=== PATIENT | male | born 1965 | race Caucasian/White ===

== ENCOUNTER 2020-07-05 13:32 | Emergency (ER) | payer OTHER, SELFPAY ==
[2020-07-05] VITALS (15 sets, daily range): BP systolic 171–229; BP diastolic 90–102; PULSE 89–123; RESP 13–21; TEMP 36.1; O2SAT 98–100
--- NOTE | ~2020-07-05 | XR_ITS ---
EXAMINATION: XR chest 2V EXAM DATE: 07/05/2020 14:14 INDICATION: elevated BP . TECHNIQUE: Frontal and lateral projections of the chest obtained and reviewed. There is no prior robert dy for comparison. FINDINGS: The lungs are clear. There are no pleural effusions. The cardiomediastinal silhouette is within normal limits. There is no pneumothorax suspected. The bones and soft tissues are unremarkab le. IMPRESSION: No acute cardiopulmonary findings. Reviewed, dictated and finalized at location B. [employer]
--- NOTE | 2020-07-05 13:43 | ECG_ITS ---
Measurements Intervals [place] Rate: 99 P: 79 SD: 124 QRS: -9 QRSD: 82 T: 38 QT: 357 QTc: 460 Interpretive Statements SINUS RHYTHM VOLTAGE CRITERIA FOR LVH BORDERLINE ECG Electronically Signed On 07-05-2020 14:33:18 FIELD ENGINEER by Shady Campos D.O.
--- NOTE | 2020-07-05 13:43 | ED.GENADULT ---
HPI - General Adult General Chief complaint: Alcohol Stated complaint: High Blood Pressure Time Seen by Provider: 07/05/20 13:43 Source: patient Mode of arrival: ambulatory Limitations: no limitations History of Present Illness HPI narrative: Patient is a 54-year-old male who presents for evaluation from her primary care physician's office for evaluation of possible alcohol withdrawl; elevated BP. Pt was a daily drinker of 12+ beers for many years, and then decided to stop drinking approximately one week ago. Pt seen at his PCP's office today and noted to be tachycardic, hypertensive, achy, and thus was sent here for evaluation. Patient does have hypertension at baseline, states it has been poorly controlled over the past couple of weeks based on a physical that he recently had at his place of work. He denies any headache, chest pain, shortness of breath. No nausea or vomiting. Patient states he feels shaky. He denies any diarrhea. He denies any falls or seizure-like activity. Related Data Home Medications Medication Instructions Recorded Confirmed escitalopram oxalate 20 mg tablet 20 mg PO DAILY 07/05/20 omeprazole 20 mg capsule,delayed 20 mg PO DAILY 07/05/20 release Allergies Allergy/AdvReac Type Severity Reaction Status Date / Time No Known Allergies Allergy Mild Verified 07/05/20 13:42 Review of Systems Review of Systems: Narrative: CONSTITUTIONAL: Denies fever, chills, or sweats. EYES: Denies visual changes, redness, or discharge. ENT: Denies rhinorrhea, congestion, sore throat, or otalgia. CARDIOVASCULAR: Denies chest pain, reports palpitations RESPIRATORY: Denies cough or dyspnea. GASTROINTESTINAL: Denies abdominal pain, nausea, vomiting, or diarrhea. GENITOURINARY: Denies dysuria or hematuria. SKIN: Denies rash or itching. MUSCULOSKELETAL: Denies back pain, joint pain, or myalgia. NEUROLOGIC: Denies headache, numbness, or weakness. PMFSH Past Medical History Medical History Anxiety disorder, unspecified Essential hypertension Heartburn Mixed hyperlipidemia Tobacco abuse Tobacco use Family History Family History Mother Hypertension Family history of diabetes mellitus in first degree relative Family history of coronary artery disease Father Cerebrovascular accident Family history of coronary artery disease Family history of throat cancer Social History Social History (Updated 07/05/20 @ 14:01 by Chica Peñaloza MD) Smoking status: Current every day smoker Tobacco type: cigarettes Alcohol intake: former Substance use: never Gender identity (if verbalized by the patient): Male Exam Narrative: Exam Narrative: GENERAL: Awake, alert, conversant, mildly anxious appearing HEAD: Normocephalic, atraumatic. EYES: PERRLA and EOMI. ENT: Nares clear, no rhinorrhea or epistaxis. Mucous membranes moist. NECK: Supple. CHEST: No respiratory distress, breathing even and non labored HEART: Tachycardic rate, sinus rhythm ABDOMEN:Non distended, non tender EXTREMITIES: Normal range of motion. No edema. SKIN: Warm, dry, no rash. NEURO:No focal deficits. Alert and oriented x3, tremulous Course Vital Signs Vital signs: Vital Signs Temperature 36.1 C L 07/05/20 13:37 Pulse Rate 123 H 07/05/20 13:37 Respiratory Rate 18 07/05/20 13:37 Blood Pressure 229/91 H 07/05/20 13:37 Pulse Oximetry 99 07/05/20 13:37 Temperature 36.1 C L 07/05/20 13:37 Pulse Rate 113 H 07/05/20 13:51 Respiratory Rate 18 07/05/20 13:37 Blood Pressure 229/91 H 07/05/20 13:37 Pulse Oximetry 99 07/05/20 13:37 Discharge Plan Discharge Prescriptions: No Action benazepril 10 mg tablet 10 mg PO DAILY Qty: 30 RF: 0 omeprazole 20 mg capsule,delayed release(DR/EC) 20 mg PO DAILY RF: 0 escitalopram oxalate [Lexapro] 20 mg tablet 20 mg PO DAILY RF: 0
[2020-07-05] MEDS: diphenhydrAMINE HCl INJ 50 MG/ML VIAL IV PUSH (13:54)
[2020-07-05] MEDS: SODIUM CHLORIDE 0.9% IV 1,000 ML 999 ML IV CONT (13:54)
[2020-07-05] MEDS: ONDANSETRON INJ 4 MG/2 ML VIAL IV PUSH (13:54)
[2020-07-05] MEDS: MAGNESIUM SULF 2 GM/WATER 50ML 2 GM/50 ML BAG IVPB (14:00)
[2020-07-05] MEDS: LORazepam INJ (*CRX) 2 MG/ML VIAL 1 MG IV PUSH (14:00)
[2020-07-05 14:01] LABS: Basophils Absolute Auto 0.1 K/mm3 (0.0-0.1); Basophils Percent Auto 0.4 % (0.2-1.2); Eosinophils Absolute Auto 0.1 K/mm3 (0-0.3); Eosinophils Percent Auto 0.4 % (0-4.4); Hematocrit 45.7 % (42.0-52.0); Hemoglobin 15.8 g/dL (14.0-18.0); Immature Granulocyte Absolute 0.03 K/mm3 (0.00-0.031); Immature Granulocyte Percent A 0.3 % (0-0.5); Lymphocytes Absolute Auto 1.62 K/mm3 (0.9-3.2); Mean Corpuscular HGB Conc 34.6 g/dl (32-36); Mean Corpuscular Hemoglobin 32.7 pg (26-34); Mean Corpuscular Volume 94.6 fl (80-100); Mean Platelet Volume 8.8 fl (7.4-10.4); Monocytes Absolute Auto 1.3 K/mm3 (0.1-0.6); Neutrophils Absolute Auto 8.6 K/mm3 (1.3-6.7); Neutrophils Percent Auto 73.9 % (45.5-73.1); Platelet Count Result 222 k/mm3 (150-375); Red Blood Count 4.83 M/mm3 (4.6-6.20); Red Cell Distribution Width 12.7 % (11.5-14.5); White Blood Count 11.6 K/mm3 (4.5-10.0)
--- NOTE | 2020-07-05 14:05 | PC.NURSE ---
BS 151
--- NOTE | 2020-07-05 14:07 | PC.NURSE ---
Pt to XRAY via stretcher.
[2020-07-05 14:09] LABS: Glucose Point of Care 151 (65-105)
--- NOTE | 2020-07-05 14:11 | ED.GENADULT ---
HPI - General Adult General Chief complaint: Alcohol Stated complaint: High Blood Pressure Time Seen by Provider: 07/05/20 13:43 Source: patient Mode of arrival: ambulatory Limitations: no limitations History of Present Illness HPI narrative: Patient is a 54-year-old male who presents for evaluation from her primary care physician's office for evaluation of possible alcohol withdrawl; elevated BP. Pt was a daily drinker of 12+ beers for many years, and then decided to stop drinking approximately one week ago. Pt seen at his PCP's office today and noted to be tachycardic, hypertensive, achy, and thus was sent here for evaluation. Patient does have hypertension at baseline, states it has been poorly controlled over the past couple of weeks based on a physical that he recently had at his place of work. He has been compliant with his anti hypertensives this week. He denies any headache, chest pain, shortness of breath. No nausea or vomiting. Patient states he feels shaky. He denies any diarrhea. He denies any falls or seizure-like activity. Related Data Home Medications Medication Instructions Recorded Confirmed escitalopram oxalate 20 mg tablet 20 mg PO DAILY 07/05/20 omeprazole 20 mg capsule,delayed 20 mg PO DAILY 07/05/20 release Allergies Allergy/AdvReac Type Severity Reaction Status Date / Time No Known Allergies Allergy Mild Verified 07/05/20 13:42 Review of Systems Review of Systems: Narrative: CONSTITUTIONAL: Denies fever, chills, or sweats. EYES: Denies visual changes, redness, or discharge. ENT: Denies rhinorrhea, congestion, sore throat, or otalgia. CARDIOVASCULAR: Denies chest pain, reports palpitations RESPIRATORY: Denies cough or dyspnea. GASTROINTESTINAL: Denies abdominal pain, nausea, vomiting, or diarrhea. GENITOURINARY: Denies dysuria or hematuria. SKIN: Denies rash or itching. MUSCULOSKELETAL: Denies back pain, joint pain, or myalgia. NEUROLOGIC: Denies headache, numbness, or weakness. PSYCHIATRIC: Reports feeling anxious and tremulous PMFSH Past Medical History Medical History Anxiety disorder, unspecified Essential hypertension Heartburn Mixed hyperlipidemia Tobacco abuse Tobacco use Family History Family History Mother Hypertension Family history of diabetes mellitus in first degree relative Family history of coronary artery disease Father Cerebrovascular accident Family history of coronary artery disease Family history of throat cancer Social History Social History (Updated 07/05/20 @ 14:01 by Chica Peñaloza MD) Smoking status: Current every day smoker Tobacco type: cigarettes Alcohol intake: former Substance use: never Gender identity (if verbalized by the patient): Male Exam Narrative: Exam Narrative: GENERAL: Awake, alert, conversant, mildly anxious HEAD: Normocephalic, atraumatic. EYES: PERRLA and EOMI. ENT: Nares clear, no rhinorrhea or epistaxis. Mucous membranes moist. NECK: Supple. CHEST: No respiratory distress, breathing even and non labored HEART: Tachycardic rate, sinus rhythm ABDOMEN:Non distended, non tender EXTREMITIES: Normal range of motion. No edema. SKIN: Warm, dry, no rash. NEURO:No focal deficits. Alert and oriented x3 Course Vital Signs Vital signs: Vital Signs Temperature 36.1 C L 07/05/20 13:37 Pulse Rate 123 H 07/05/20 13:37 Respiratory Rate 18 07/05/20 13:37 Blood Pressure 229/91 H 07/05/20 13:37 Pulse Oximetry 99 07/05/20 13:37 Temperature 36.1 C L 07/05/20 13:37 Pulse Rate 119 H 07/05/20 16:20 Respiratory Rate 21 H 07/05/20 16:20 Blood Pressure 181/102 H 07/05/20 16:20 Pulse Oximetry 99 07/05/20 16:20 Critical Care Time Critical Care Time Critical Care Time: Yes Total Critical Care Time: 45 Discharge Plan Discharge Clinical Impression: Alcohol use with withdrawal Patient Disposition: Home, Self-Care Condition: Stable
[2020-07-05 14:16] LABS: Alanine Aminotransferase 24 U/L (4-50); Albumin Level 4.6 g/dL (3.5-5.1); Alkaline Phosphatase 76 U/L (38-126); Anion Gap 12 mmol/L (8-16); Aspartate Amino Transferase 34 U/L (17-59); Bilirubin,Total 0.7 mg/dL (0.2-1.3); Blood Urea Nitrogen 19 mg/dL (9-20); Calcium 9.4 mg/dL (8.4-10.2); Carbon Dioxide 24 mmol/L (22-30); Chloride 102 mmol/L (98-107); Estimated CRCL calculation 93 ml/min; Estimated Glomerular Filt Rate > 60; Glucose 148 mg/dL (75-110); Potassium 4.1 mmol/L (3.4-5.0); Sodium 138 mmol/L (137-145)
[2020-07-05 14:26] LABS: Lactic Acid Reflex 1.6 mmol/L (0.7-2.1)
[2020-07-05 14:54] LABS: Ethanol < 10 mg/dL (<10)
[2020-07-05 15:01] LABS: Add Urine Microscopic? YES; Appearance Urine Clear (Clear); Bilirubin Urine Negative (Negative); Blood Urine Negative (Negative); Color Urine Yellow (Yellow); Glucose Urine UA Negative (Negative); Ketones Urine Trace mg/dL (Negative); Leukocyte Esterase Ur Negative LEU/UL (Negative); Mucus Urine Rare /lpf; Nitrate Urine Negative (Negative); Protein Urine Negative (Negative); RBC Urine 0-2 /hpf (0-2); Specific Grav Ur 1.015 (1.001-1.035); Urobilinogen Urine Negative mg/dL (<2.0); WBC Urine 0-3 /hpf
[2020-07-05 15:15] LABS: Amphetamine Screen Urine Negative (Negative); Barbiturate Screen Urine Negative (Negative); Benzodiazepines Screen Urine Negative (Negative); Cannabinoid Screen Urine Negative (Negative); Cocaine Screen Urine Negative (Negative); Methadone Screen Urine Negative (Negative); Opiate Screen Urine Negative (Negative); Phencyclidine Screen Urine Negative (Negative)
[2020-07-05] MEDS: LORazepam (*CRX) 1 MG TABLET PO (16:20)
== END 2020-07-05 16:21 | disposition home or self-care (01) ==
PROVIDERS: Emergency Provider Emergency Medicine; PCP Physician Assistant Medical
DX: F10.939 Alcohol use, unspecified with withdrawal, unspecified (principal); Y90.0 Blood alcohol level of less than 20 mg/100 ml; F41.9 Anxiety disorder, unspecified; I10 Essential (primary) hypertension; E78.5 Hyperlipidemia, unspecified
CPT/HCPCS: 36415; 71046; 80053; 80307; 81001; 82948; 83605; 85025; 93005; 96365; 96366; 96367; 96375; 99284; A9270; J1200; J2060; J2405; J3411; J3475; J7030; J7121